=== PATIENT | female | born 1995 | race Caucasian/White ===

== ENCOUNTER 2017-05-27 11:17 | Emergency (ER) | payer BC, SELFPAY ==
[2017-05-27] MEDS ORDERED: Ketorolac Tromethamine 60 MG/2 ML VIAL ONE (11:40)
[2017-05-27] MEDS ORDERED: HYDROcodone/Acetaminophen 10/325 mg Tablet ONE (12:02)
--- NOTE | 2017-05-27 13:22 | RAD ---
PORTABLE CHEST: Date: 05/27/17 PROVIDED CLINICAL HISTORY: Chest pain. FINDINGS: Cardiac and mediastinal silhouette is within normal limits. Lungs appear clear. No pleural fluid or p neumothorax. IMPRESSION: No evidence for an acute cardiopulmonary process. POS: [facility]
--- NOTE | 2017-06-03 12:36 | EKG ---
Test Reason : Blood Pressure : / mmHG Vent. Rate : 071 BPM Atrial Rate : 071 BPM P-R Int : 124 ms QRS Dur : 086 ms QT Int : 400 ms P-R-T Axes : 057 072 040 degrees QTc Int : 434 ms Poor data quality, interpretation may be adversely affected Normal sinus rhythm Normal ECG Confirmed by VIGNESH GERMAN, RACQUEL ([id number]), editor city GEOVANY POP ([id number]) on 06/03/2017 12:36:01 PM Referred By: Confirmed By:RACQUEL MEDELLIN MD
== END 2017-05-27 12:22 | disposition home or self-care (01) ==
LOC: ERS 11:17
DX: S29.9XXA Unspecified injury of thorax, initial encounter (principal); R09.1 Pleurisy; F41.9 Anxiety disorder, unspecified; F32.9 Major depressive disorder, single episode, unspecified; F17.210 Nicotine dependence, cigarettes, uncomplicated; Z79.899 Other long term (current) drug therapy; W07.XXXA Fall from chair, initial encounter
CPT/HCPCS: 71045; 93005; 96372; J1885

== ENCOUNTER 2017-05-30 17:56 | Emergency (ER) | payer SELFPAY ==
[2017-05-30] MEDS ORDERED: Acetaminophen 500 MG TAB ONE (19:38)
[2017-05-30] MEDS ORDERED: Ketorolac Tromethamine 30 MG/ML VIAL ONE (20:59)
--- NOTE | 2017-05-30 21:12 | RAD ---
TWO VIEW CHEST: 05/30/17 HISTORY: Chest pain. Lungs are clear. Heart and mediastinum appear unremarkable. IMPRESSION: No acute finding. POS: [facility]
[2017-05-30 21:59] LABS: Band 6 % (5-11); Eosinophils 1 % (0-10); Lymphocytes 7 % (21-51); MDiff Complete? YES; Mean Corpuscular HGB CONC 34.1 g/dL (32.0-36.0); Mean Corpuscular Volume 90.8 fl (81.0-99.0); Mean Platelet Volume 8.3 fL (7.4-10.4); Monocytes 4 % (0-10); Neutrophil 82 % (42-75); PLT Morphology Comment Appears Adequate; Platelet Count 226 thou/uL (130-400); RBC Distribution Width 11.7 % (11.5-14.5); Red Blood Cell (RBC) Count 4.21 mill/uL (4.20-5.40)
[2017-05-30 22:00] LABS: ALT (SGPT) 11 U/L (8-55); AST (SGOT) 14 U/L (5-34); Albumin 3.5 g/dL (3.5-5.0); Alkaline Phosphatase 73 U/L (40-150); Anion Gap 14 mmol/L (10-20); BUN (Urea Nitrogen) 10 mg/dL (7.0-18.7); Bilirubin, Total 0.4 mg/dL (0.2-1.2); Calc. Creatinine Clearance 0 mL/min (70-130); Calcium 8.7 mg/dL (7.8-10.44); Carbon Dioxide 22 mmol/L (22-29); Chloride 102 mmol/L (98-107); Estimated GFR-MDRD Greater than 90; Globulin 3.2 g/dL (2.4-3.5); Glucose 103 mg/dL (70-105); Potassium 4.3 mmol/L (3.5-5.1); Protein, Total 6.7 g/dL (6.0-8.3); Sodium 134 mmol/L (136-145)
[2017-05-30] MEDS ORDERED: Dexamethasone 4 mg/ml Vial ONE (22:26)
--- NOTE | 2017-06-03 11:45 | EKG ---
Test Reason : Blood Pressure : / mmHG Vent. Rate : 089 BPM Atrial Rate : 089 BPM P-R Int : 126 ms QRS Dur : 086 ms QT Int : 340 ms P-R-T Axes : 036 045 032 degrees QTc Int : 413 ms Normal sinus rhythm Normal ECG Confirmed by NISHA GERMAN, TIA Bowling ([id number]), production editor GEOVANY POP ([id number]) on 06/03/2017 11:44:29 AM Referred By: LIZ CAMERON Confirmed By:TIA CAMERON MD
== END 2017-05-30 22:47 | disposition home or self-care (01) ==
LOC: ERS 17:56
DX: M94.0 Chondrocostal junction syndrome [Tietze] (principal); B34.9 Viral infection, unspecified; F41.9 Anxiety disorder, unspecified; F32.9 Major depressive disorder, single episode, unspecified; F17.210 Nicotine dependence, cigarettes, uncomplicated; Z71.6 Tobacco abuse counseling; Z79.899 Other long term (current) drug therapy
CPT/HCPCS: 71046; 80053; 85025; 85652; 93005; 96374; 96375; 99406; J1100; J1885

== ENCOUNTER 2017-06-05 16:25 | Outpatient (CLI) | payer SELFPAY ==
--- NOTE | 2017-06-05 17:30 | RAD ---
TWO VIEWS CHEST: Comparison: 05-30-17 History: Lump and mass in the upper chest. Patient has had pain before. FINDINGS: Two views of the chest shows normal sized cardiomediastinal silhouette. A marker is placed over a pro minence in the upper chest above the breast. No radiopaque mass is seen in this location. The bones a re unremarkable. IMPRESSION: No radiopaque mass at the area of palpable abnormality. POS: [facility]
== END 2017-06-05 16:26 | disposition home or self-care (01) ==
LOC: SCSRAD 16:25
PROVIDERS: ATTEND Family Medicine
DX: Z11.3 Encounter for screening for infections with a predominantly sexual mode of transmission (principal); Z00.00 Encounter for general adult medical examination without abnormal findings; R22.2 Localized swelling, mass and lump, trunk
CPT/HCPCS: 36415; 71046; 80306; 81001; 81025; 85025; 86592; 87491; 87591

== ENCOUNTER → 2017-10-05 | Emergency (ER) | payer MEDICAID ==
[~2017-10-05] MED LIST: Adacel (T-DAP) 0.5 ML VIAL ONE; Lidocaine 1% (PF) 30 ML VIAL ONE; Lidocaine 1% w/Epinephrine 1:100K 20 ML VIAL ONE; Water For Injection,Sterile 20 ML ONE; Ziprasidone 20 MG VIAL ONE
[2017-10-06 00:06] LABS: #Basophils 0.1 thou/uL (0.0-0.2); #Eosinphils 0.1 thou/uL (0.0-0.7); #Lymphocytes 3.3 thou/uL (1.20-3.40); #Monocytes 0.6 thou/uL (0.11-0.59); #Neutrophils 5.3 thou/uL (1.40-6.50); %Basophils 1.1 % (0.0-1.0); %Eosinophils 1.2 % (0.0-10.0); %Lymphocytes 35.1 % (21.0-51.0); %Monocytes 6.5 % (0.0-10.0); %Neutrophils 56.1 % (42.0-75.0); Hemoglobin 14.2 g/dL (12.0-16.0); Mean Corpuscular HGB CONC 33.9 g/dL (32.0-36.0); Mean Corpuscular Hemoglobin 30.4 pg (27.0-31.0); Mean Corpuscular Volume 89.6 fL (78.0-98.0); Mean Platelet Volume 8.4 fL (7.4-10.4); Platelet Count 223 thou/uL (130-400); RBC Distribution Width 13.2 % (11.5-14.5); Red Blood Cell (RBC) Count 4.67 mill/uL (4.20-5.40); White Blood Cell (WBC) Count 9.5 thou/uL (4.8-10.8)
[2017-10-06 00:16] LABS: Amphetamine Not Detected (NotDetected); Barbiturates Screen Detected (NotDetected); Benzodiazepine Screen Not Detected (NotDetected); Cocaine Metabolite Screen Not Detected (NotDetected); Medtox Control Line Valid? VALID (VALID); Medtox Reader # READER 4; Methadone Not Detected (NotDetected); Methamphetamine Not Detected (NotDetected); Opiate Screen Not Detected (NotDetected); Oxycodone Screen Not Detected (NotDetected); Phencyclidine (PCP) Not Detected (NotDetected); Pregnancy Test - Urine (BHCG) Negative (Negative); Pregu Control Background? CLEAR/WHITE (CLR/WHITE); Pregu Control Bar Appear? YES (CONTROL BAR); Specific Gravity 1.006 (1.002-1.036); THC/Cannabinoid Screen Detected (NotDetected); Tricyclic Screen Not Detected (NotDetected)
[2017-10-06 00:24] LABS: ALT (SGPT) 12 U/L (8-55); AST (SGOT) 19 U/L (5-34); Albumin 4.6 g/dL (3.5-5.0); Alcohol 274 mg/dL (Less than 10); Alkaline Phosphatase 86 U/L (40-150); Anion Gap 19 mmol/L (10-20); BUN (Urea Nitrogen) 9 mg/dL (7.0-18.7); Bilirubin, Total 0.6 mg/dL (0.2-1.2); Calc. Creatinine Clearance 0 mL/min (70-130); Calcium 9.4 mg/dL (7.8-10.44); Carbon Dioxide 21 mmol/L (22-29); Chloride 106 mmol/L (98-107); Estimated GFR-MDRD Greater than 90; Glucose 90 mg/dL (70-105); Potassium 3.8 mmol/L (3.5-5.1); Protein, Total 7.6 g/dL (6.0-8.3); Sodium 142 mmol/L (136-145)
--- NOTE | 2017-10-06 07:42 | RAD ---
CHEST 2 VIEWS: Date: 10/05/17 HISTORY: Trauma. Chest pain. COMPARISON: None. FINDINGS: Lungs are clear. No pneumothorax or effusion. Cardiac silhouette and mediastinal contour within farhat l limits. IMPRESSION: No acute intrathoracic abnormality. POS: [facility]
--- NOTE | 2017-10-06 07:43 | RAD ---
RIGHT FEMUR 2 VIEWS: Date: 10/05/17 HISTORY: Trauma. Injury. COMPARISON: None. FINDINGS: There appears to be a soft tissue laceration of the dorsum of the right thigh. No radiopaque foreign object. No acute fracture. IMPRESSION: Anterior soft tissue laceration. POS: [facility]
== END ==
LOC: ERS 22:55
DX: S71.111A Laceration without foreign body, right thigh, initial encounter (principal); S21.111A Laceration without foreign body of right front wall of thorax without penetration into thoracic cavity, initial encounter; S10.91XA Abrasion of unspecified part of neck, initial encounter; F32.9 Major depressive disorder, single episode, unspecified; F17.210 Nicotine dependence, cigarettes, uncomplicated; X78.1XXA Intentional self-harm by knife, initial encounter
CPT/HCPCS: 12001; 12034; 36415; 71046; 80053; 80306; 80307; 81025; 84443; 85025; 90471; 90715; 94760; 96372; J2001; J3486